=== PATIENT | male | born 1995 | race Caucasian/White ===

== ENCOUNTER 2018-04-02 21:09 | Emergency (ER) | payer OTHER ==
[~2018-04-02] VITALS: Ht 175.3 cm; Wt 78.0 kg
[2018-04-02 21:25] VITALS: BP 152/79
--- NOTE | 2018-04-03 00:03 | NUR ---
pt to room from lobby
[2018-04-03] MEDS ORDERED: KETOROLAC 30 MG/1 ML IVPush ONE (00:30)
[2018-04-03] MEDS ORDERED: DEXAMETHASONE 4 MG/ML, 1ML IVPush ONE (00:30)
[2018-04-03] MEDS ORDERED: METOCLOPRAMIDE 5 MG/ML, 2ML IVPush ONE (00:30)
[2018-04-03] MEDS ORDERED: DIPHENHYDRAMINE 50 MG/ML, 1ML IVPush ONE (00:30)
[2018-04-03] MEDS ORDERED: SODIUM CHLORIDE FLUSH 10ML SYR IVF ONE (00:30)
[2018-04-03] MEDS ORDERED: DIPHENHYDRAMINE 50 MG/ML, 1ML ONE (01:00)
[2018-04-03] MEDS ORDERED: DEXAMETHASONE 4 MG/ML, 1ML ONE (01:00)
[2018-04-03] MEDS ORDERED: KETOROLAC 30 MG/1 ML ONE (01:00)
[2018-04-03] MEDS ORDERED: METOCLOPRAMIDE 5 MG/ML, 2ML ONE (01:00)
== END 2018-04-03 01:46 | disposition home or self-care (01) ==
LOC: ED 23:59
DX: R51 Headache (principal)
CPT/HCPCS: 96374; 96375; 99283; J1100; J1200; J1885; J2765